=== PATIENT | male | born 1940 | race Caucasian/White ===

== ENCOUNTER 2016-07-29 08:26 | Day surgery (SDC) | payer MEDICARE, OTHER ==
--- NOTE | ~2016-07-29 | EGD ---
EGD REPORT [facility] [address] [address] NAME: EDUARDO TAYLOR : [birth year] STATUS : REG [facility] PAT#: [id number] AGE: 76 ADM/REG DATE : 07/29/16 MR#: [id number] REPORT SERV DATE: 07/29/16 DICTATED BY: WILBUR RUCKER DATE: 07/29/16 REPORT STATUS : Draft TRANSCRIBED BY: [facility] DATE: 07/29/16 [facility] Patient Name: Eduardo Taylor Date of : 1940 Attending MD: SUPA RUCKER MD Procedure Date No Time: 07/29/2016 Procedure: Colonoscopy Indications: High risk colon cancer surveillance: Personal history of colonic polyps, Last colonoscopy: November 2009 Referring MD: SARAH MEYER MD Medicines: See the Anesthesia note for documentation of the administered medications Complications: No immediate complications. Estimated blood loss: None. Procedure: Pre-Anesthesia Assessment: - ASA Grade Assessment: III - A patient with severe systemic disease. - Prior to the procedure, a History and Physical was performed, and patient medications and allergies were reviewed. The patient's tolerance of previous anesthesia was also reviewed. The risks and benefits of the procedure and the sedation options and risks were discussed with the patient. All questions were answered, and informed consent was obtained. Prior Anticoagulants: The patient has taken aspirin, last dose was day of procedure. After reviewing the risks and benefits, the patient was deemed in satisfactory condition to undergo the procedure. After I obtained informed consent, the scope was passed under direct vision. Throughout the procedure, the patient's blood pressure, pulse, and oxygen saturations were monitored continuously. The PCF [id number] was introduced through the anus and advanced to the terminal ileum. The ileocecal valve, appendiceal orifice, terminal ileum and rectum were photographed. The entire colon was examined. The colonoscopy was performed without difficulty. The patient tolerated the procedure well. The quality of the bowel preparation was adequate. Findings: The perianal exam was abnormal. Findings include internal hemorrhoids that prolapse with straining, but require manual replacement into the anal canal (Grade III). The terminal ileum appeared normal. Two sessile polyps were found in the proximal transverse colon. The polyps were small in size. These polyps were removed with a cold snare. EGD REPORT [address] [address] NAME: EDUARDO TAYLOR : [birth year] STATUS : REG [facility] PAT#: [id number] AGE: 76 ADM/REG DATE : 07/29/16 MR#: [id number] REPORT SERV DATE: 07/29/16 DICTATED BY: WILBUR RUCKER DATE: 07/29/16 REPORT STATUS : Draft TRANSCRIBED BY: [employer] DATE: 07/29/16 Resection and retrieval were complete. A sessile polyp was found in the mid transverse colon. The polyp was small in size. The polyp was removed with a cold snare. Resection and retrieval were complete. Multiple small and large-mouthed diverticula were found in the entire colon. Non-bleeding internal hemorrhoids were found during retroflexion and were Grade III (internal hemorrhoids that prolapse but require manual reduction). Impression: - Internal hemorrhoids that prolapse with straining, but require manual replacement into the anal canal (Grade III) found on perianal exam. - The examined portion of the ileum was normal. - Two small polyps in the proximal transverse colon. Resected and retrieved. - One small polyp in the mid transverse colon. Resected and retrieved. - Diverticulosis in the entire examined colon. - Non-bleeding internal hemorrhoids. Recommendation: - Patient has a contact number available for emergencies. The signs and symptoms of potential delayed complications were discussed with the patient. Return to normal activities tomorrow. Written discharge instructions were provided to the patient. - High fiber diet indefinitely. - Discharge patient to home. - Continue present medications. - Repeat colonoscopy in 5 years for surveillance. Procedure Code(s): --- Professional --- 40547, Colonoscopy, flexible, proximal to splenic flexure; with removal of tumor(s), polyp(s), or other lesion(s) by snare technique Diagnosis Code(s): --- Professional --- K64.2, Third degree hemorrhoids K57.30, Diverticulosis of large intestine without perforation or abscess without bleeding D12.3, Benign neoplasm of transverse colon Z86.010, Personal history of colonic polyps CPT copyright 2013 [employer]. All rights reserved. The codes documented in this report are preliminary and upon trekking guide review may EGD REPORT [facility] [address] [address] NAME: EDUARDO TAYLOR : [birth year] STATUS : REG [facility] [place] PAT#: [id number] AGE: 76 ADM/REG DATE : 07/29/16 MR#: [id number] REPORT SERV DATE: 07/29/16 DICTATED BY: WILBUR RUCKER DATE: 07/29/16 REPORT STATUS : Draft TRANSCRIBED BY: [employer] DATE: 07/29/16 be revised to meet current compliance requirements. SUPA RUCKER MD 07/29/2016 9:58 AM This report has been signed electronically. Number of Addenda: 0 Note Initiated On: 07/29/2016 9:27 AM Scope Withdrawal Time 0 hours 10 minutes 7 seconds [address] [id number]
[~2016-07-29 08:26] MED LIST: ASAB PO; COREG25 PO; CRESTOR20 MG PO; EXFORGE HC4 PO; FEMARA PO; HYDROCHLOROT25 MG PO; KLOR-CON M2020 MEQ PO; METHOC500B PO; NIASPAN500 PO; NORCO1 TA2 PO; POTASSIUM95 MG PO; PROTONIX PO; PROTONIX20 MG PO; TRAZ50 PO; VITAMIN D31000 UNIT PO
== END 2016-07-29 23:59 | disposition home or self-care (01) ==
LOC: DMU 08:26
PROVIDERS: Internal Medicine Gastroenterology
PROC: 0DBL8ZZ Excision of Transverse Colon, Via Natural or Artificial Opening Endoscopic (ICD-10-PCS; principal; 2016-07-29 10:00)
DX: Z12.11 Encounter for screening for malignant neoplasm of colon (principal); D12.3 Benign neoplasm of transverse colon; K64.2 Third degree hemorrhoids; M19.90 Unspecified osteoarthritis, unspecified site; K57.30 Diverticulosis of large intestine without perforation or abscess without bleeding; I10 Essential (primary) hypertension; K21.9 Gastro-esophageal reflux disease without esophagitis; F41.9 Anxiety disorder, unspecified; Z96.641 Presence of right artificial hip joint; Z86.010 Personal history of colon polyps; Z79.899 Other long term (current) drug therapy; Z79.82 Long term (current) use of aspirin; Z79.891 Long term (current) use of opiate analgesic; Z88.8 Allergy status to other drugs, medicaments and biological substances; Z95.5 Presence of coronary angioplasty implant and graft; Z87.442 Personal history of urinary calculi; Z87.01 Personal history of pneumonia (recurrent)
CPT/HCPCS: 88305